=== PATIENT | female | born 1995 | race Caucasian/White ===

== ENCOUNTER 2017-02-28 01:29 | Emergency (ER) | payer SELFPAY ==
[~2017-02-28] VITALS: Ht 154.9 cm; Wt 52.3 kg
[2017-02-28 01:34] VITALS: TEMP 97.6
[2017-02-28 01:44] LABS: BASO % 0.3 % (0.0-2.0); EOS # 0.1 (0.0-0.7); EOS % 0.6 % (0-4.0); GRAN # 6.9 (1.4-6.5); HEMOGLOBIN 12.2 g/dl (12.5-16.0); LYMPH # 4.6 (1.2-3.4); LYMPH % 36.8 % (20.0-51.0); MEAN CELL VOLUME 90 fl (80.0-100.0); MEAN CORPUSCULAR HEMOGLOBIN 31 pg (27.0-31.0); MEAN CORPUSCULAR HGB CONC 35 g/dl (33.0-37.0); MEAN PLATELET VOLUME 9.7 fl (7.4-10.4); MONO # 0.9 (0.1-0.6); MONO % 7.1 % (1.7-9.3); PLATELET COUNT 368 K/mm3 (130-400); RED BLOOD COUNT 3.92 M/mm3 (4.10-5.30); REDCELL DISTRIBUTION WIDTH-CV 12.3 % (11.5-14.5)
[2017-02-28 01:45] LABS: HEMATOCRIT 35.3 % (37.0-47.0)
[2017-02-28] MEDS ORDERED: NEXPLANON68 MG ID (01:54)
[2017-02-28 01:55] LABS: BILIRUBIN,TOTAL 0.3 mg/dL (0.0-1.0); CALCIUM 9.6 mg/dL (8.4-10.2); CREATININE, serum 0.67 mg/dL (0.52-1.25); POTASSIUM 3.2 mmol/L (3.4-5.0); TOTAL PROTEIN 7.9 gm/dL (6.4-8.2)
[2017-02-28 05:48] VITALS: BP 96/53; PULSE 112
== END 2017-02-28 05:59 | disposition home or self-care (01) ==
LOC: COL.ER 01:29
PROVIDERS: Emergency Medicine
DX: F10.129 Alcohol abuse with intoxication, unspecified (principal)
CPT/HCPCS: J2405; J3480; J7030; J7120